=== PATIENT | male | born 1995 | race Caucasian/White ===

== ENCOUNTER 2016-11-06 03:47 | Emergency (ER) | payer SELFPAY | END 2016-11-06 03:48 | disposition left against medical advice (07) | DX: Z53.21 Procedure and treatment not carried out due to patient leaving prior to being seen by health care provider (principal) ==

== ENCOUNTER 2017-05-12 13:32 | Emergency (ER) | payer OTHER ==
[2017-05-12 14:00] VITALS: TEMP 98.1
[2017-05-12] MEDS ORDERED: ONDANSETRON 4 MG/2 ML VIAL IVP ONE (14:32)
[2017-05-12] MEDS ORDERED: NS 1,000 ML IV ONE (14:32)
[2017-05-12 14:46] LABS: % IMMATURE GRANULYOCYTES 0.2 % (0.0-1.1); ABSOLUTE IMMATURE GRANULOCYTES 0.01 10^3/uL (0.00-0.10); ADD DIFF? NO; ADD MORPH? NO; ADD SCAN? NO; ATYPICAL LYMPHOCYTE FLAG 10 (0-99); FRAGMENT RBC FLAG 0 (0-99); HEMATOCRIT 47.3 % (40.0-51.0); HEMOGLOBIN 17.2 g/dL (13.7-17.5); LEFT SHIFT FLG 0 (0-99); LIPEMIA HEMOLYSIS FLAG 90 (0-99); MEAN CELL HEMOGLOBIN 32.7 pg (27.9-34.1); MEAN CELL HEMOGLOBIN CONCENTR. 36.4 g/dL (32.4-36.7); MEAN CELL VOLUME 89.9 fL (81.5-99.8); MEAN PLATELET VOLUME 8.9 fL (8.7-11.7); PLATELET CLUMPS FLAG 10 (0-99); PLATELET COUNT 262 10^3/uL (150-400); RED BLOOD CELL COUNT 5.26 10^6/uL (4.40-6.38); RED CELL DISTRIBUTION WIDTH 11.9 % (11.5-15.2)
[2017-05-12 14:54] LABS: COLOR YELLOW; LEUKOCYTE ESTERASE,URINE NEGATIVE (NEGATIVE); NITRITE,URINE NEGATIVE (NEGATIVE)
[2017-05-12 14:57] LABS: ANION GAP 11 mEq/L (8-16); CALCIUM 9.3 mg/dL (8.5-10.4); CARBON DIOXIDE 22 mEq/l (22-31); CHLORIDE 109 mEq/L (97-110); CREATININE 0.8 mg/dL (0.7-1.3); GLOMERULAR FILTRATION RATE > 60; GLUCOSE 90 mg/dL (70-100); POTASSIUM 4.4 mEq/L (3.5-5.2); SODIUM 142 mEq/L (134-144)
--- NOTE | 2017-05-12 15:12 | EDPHY ---
H & P Time Seen by Provider: 05/12/17 15:00 HPI/ROS: CHIEF COMPLAINT: RLQ pain HISTORY OF PRESENT ILLNESS: The patient is a 21-year-old male presenting with right lower quadrant abdominal pain that started this morning. The patient woke up with pain below his umbilicus. Throughout the day the pain gradually moved to the right lower quadrant. The pain is severe. It has remained constant since onset. He has associated nausea, vomiting, and diarrhea. The patient reports chills and states he had a fever at urgent care today. Patient additionally complains of acute left wrist pain. He had a fall earlier today and tried to catch himself. He states wrist pain is moderate in severity. REVIEW OF SYSTEMS: A comprehensive 10 point review of systems is otherwise negative aside from elements mentioned in the history of present illness. Past Medical/Surgical History: Denies. Social History: [employer] student. Smoking Status: Never smoked Physical Exam: General Appearance: Alert, pleasant Eyes: Pupils equal and round, no conjunctival pallor or injection ENT, Mouth: Mucous membranes moist Neck: Normal inspection Respiratory: Lungs are clear to auscultation Cardiovascular: Regular rate and rhythm Gastrointestinal: RLQ and RUQ tenderness Neurological: A&O, nonfocal, normal gait Skin: Warm and dry, no rash Extremities: Right wrist: Tenderness to ulnar aspect of wrist and snuff box tenderness Psychiatric: Mood and affect normal Constitutional: Initial Vital Signs Temperature (C) 36.7 C 05/12/17 13:57 Heart Rate 76 05/12/17 13:57 Respiratory Rate 18 05/12/17 13:57 Blood Pressure 127/76 H 05/12/17 13:57 O2 Sat (%) 98 05/12/17 13:57 O2 Delivery Mode Room Air Allergies/Adverse Reactions: No Known Allergies Allergy (Verified 05/12/17 13:57) Home Medications: Medication Instructions Recorded Ondansetron Odt [Zofran Odt 4 mg 4 mg PO Q4 PRN #6 tab 05/12/17 (*)] Medical Decision Making - Diagnostics Imaging Results: Wrist X-Ray 05/12/17 14:38 Impression: Negative. No acute fracture. Abdomen CT 05/12/17 15:13 Impression: 1. Normal CT appearance of the appendix. 2. Right lower quadrant mesenteric adenitis. 3. Moderate constipation. Imaging: Discussed imaging studies w/ square dance caller Radiologist, I viewed and interpreted images myself ED Course/Re-evaluation: Patient presents with RLQ pain. He has associated nausea, vomiting, and diarrhea. On exam patient has RLQ and RUQ tenderness. IV established, patient received IV fluids and Zofran. CT abdomen/pelvis ordered to look for appendicitis. Patient additionally complains of acute left wrist pain from a fall earlier today. Patient has tenderness to ulnar aspect as well as snuff box tenderness. X -ray is negative for fracture. Concern for occult fx scaphoid, will place thumb- spica splint. Procedure: Splint placement A thumb spica splint was applied by the service technician. Alignment was adequate and the patient was neurovascularly intact after application. CT shows mesenteric adenitis. Discussed with patient. Abdomen remains benign. Plan to discharge patient home with Zofran and Ibuprofen. Differential Diagnosis: Differential diagnosis includes though it is not limited to appendicitis, cholecystitis, diverticulitis, pyelonephritis, bowel perforation, small bowel obstruction. - Data Points Laboratory Results: Laboratory Results 05/12/17 14:25 05/12/17 14:25 Medications Given: Discontinued Medications Sodium Chloride (Ns) 1,000 mls @ 0 mls/hr IV ONCE ONE; Wide Open PRN Reason: Protocol Stop: 05/12/17 14:33 Last Admin: 05/12/17 14:35 Dose: 1,000 mls Ketorolac Tromethamine (Toradol) 15 mg IVP EDNOW ONE Stop: 05/12/17 15:14 Last Admin: 05/12/17 15:43 Dose: 15 mg Ondansetron HCl (Zofran) 4 mg IVP EDNOW ONE Stop: 05/12/17 14:33 Last Admin: 05/12/17 14:35 Dose: 4 mg Departure - Departure Disposition: Home, Routine, Self-Care Clinical Impression: Mesenteric adenitis Wrist pain Qualifiers: Laterality: left Qualified Code(s): M25.532 - Pain in left wrist Condition: Good Instructions: Wrist Injury (ED), Mesenteric Adenitis (ED) Additional Instructions: You have a possible wrist fracture. Please have a repeat wrist x-ray in 14 days. Wear the splint until you are reevaluated by an Orthopedist. Your CT today showed mesenteric adenitis. I recommend 600mg Ibuprofen every 6-8 hours as needed for pain. Take Zofran as prescribed for nausea and vomiting. Referrals: NICOLAS CONDE [Primary Care Provider] - As per Instructions Flynn Martinez MD [Medical Doctor] - As per Instructions (Orthopedist) Stand Alone Forms: Work Excuse Prescriptions: Ondansetron Odt [Zofran Odt 4 mg (*)] 4 mg PO Q4 PRN #6 tab PRN Reason: Nausea Report Scribed for: Alicia Florian Report Scribed by: Myra Downing Date of Report: 05/12/17 Time of Report: 15:12 Physician Review and Approval Statement: 05/12/17 15:12 Portions of this note were transcribed by a senior medical writer. I personally performed the history, physical exam, and medical decision-making; and confirmed the accuracy of the information in the transcribed note.
[2017-05-12] MEDS ORDERED: KETOROLAC 15 MG/1 ML SDV IVP ONE (15:13)
[2017-05-12] MEDS ORDERED: IOPAMIDOL (ISOVUE-300) 100 ML BTL ONE (15:35)
[2017-05-12 17:24] VITALS: BP 114/71; PULSE 58; RESP 16; O2SAT 96
== END 2017-05-12 17:23 | disposition home or self-care (01) ==
PROC: 2W3DX1Z Immobilization of Left Lower Arm using Splint (ICD-10-PCS; principal; 2017-05-12)
DX: S69.92XA Unspecified injury of left wrist, hand and finger(s), initial encounter (principal); E86.9 Volume depletion, unspecified; I88.0 Nonspecific mesenteric lymphadenitis; W19.XXXA Unspecified fall, initial encounter
CPT/HCPCS: 96374; J1885; J2405; Q9967